=== PATIENT | male | born 1980 | race Hispanic/Latino ===

== ENCOUNTER 2019-05-29 11:14 | Emergency (ER) | payer OTHER, SELFPAY ==
--- NOTE | 2019-05-29 12:26 | EDPHYS ---
Physician Documentation [facility] Name: Dedrick Ray Jr Age: 38 yrs Sex: Male : 1980 Arrival Date: 05/29/2019 Time: 11:23 Bed 5 Private MD: None, None ED Physician Chano Ramirez HPI: 05/28 15:23 This 38 yrs old Male presents to ER via Ambulatory with complaints of Flu kb Symptoms. 15:23 The patient or guardian reports cough, that is intermittent, described as moderate, kb with no sputum, flu symptoms, low-grade fever. Onset: The symptoms/episode began/occurred last night. Severity of symptoms: At their worst the symptoms were moderate, in the emergency department the symptoms are unchanged. Modifying factors: The symptoms are alleviated by nothing, the symptoms are aggravated by nothing. Associated signs and symptoms: Pertinent positives: fever, sore throat, Pertinent negatives: chest pain, diarrhea, ear ache, nausea, rhinorrhea, vomiting. The patient has not experienced similar symptoms in the past. The patient has not recently seen a physician. Pt reports subjective fever, sore throat and cough that started last night. Historical: - Allergies: 11:33 No Known Allergies; sv - Home Meds: 11:33 None [Active]; sv - PMHx: 11:33 None; sv - PSHx: 11:33 None; sv - Immunization history:: Adult Immunizations up to date, Flu vaccine is not up to date. - Social history:: Smoking status: Patient denies any tobacco usage or history of. ROS: 15:21 Neck: Negative for injury, pain, and swelling, Cardiovascular: Negative for chest pain, kb palpitations, and edema, Abdomen/GI: Negative for abdominal pain, nausea, vomiting, diarrhea, and constipation, Back: Negative for injury and pain, MS/Extremity: Negative for injury and deformity, Skin: Negative for injury, rash, and discoloration, Neuro: Negative for headache, weakness, numbness, tingling, and seizure. 15:21 Constitutional: Positive for fever. 15:21 ENT: Positive for sore throat. 15:21 Respiratory: Positive for cough. Exam: 15:21 Constitutional: This is a well developed, well nourished patient who is awake, alert, kb and in no acute distress. Head/Face: Normocephalic, atraumatic. ENT: Nares patent. No nasal discharge, no septal abnormalities noted. Tympanic membranes are normal and external auditory canals are clear. Oropharynx with no redness, swelling, or masses, exudates, or evidence of obstruction, uvula midline. Mucous membranes moist. Neck: Trachea midline, no thyromegaly or masses palpated, and no cervical lymphadenopathy. Supple, full range of motion without nuchal rigidity, or vertebral point tenderness. No Meningismus. Chest/axilla: Normal chest wall appearance and motion. Nontender with no deformity. No lesions are appreciated. Cardiovascular: Regular rate and rhythm with a normal S1 and S2. No gallops, murmurs, or rubs. Normal PMI, no JVD. No pulse deficits. Respiratory: Lungs have equal breath sounds bilaterally, clear to auscultation and percussion. No rales, rhonchi or wheezes noted. No increased work of breathing, no retractions or nasal flaring. Abdomen/GI: Soft, non-tender, with normal bowel sounds. No distension or tympany. No guarding or rebound. No evidence of tenderness throughout. Skin: Warm, dry with normal turgor. Normal color with no rashes, no lesions, and no evidence of cellulitis. MS/ Extremity: Pulses equal, no cyanosis. Neurovascular intact. Full, normal range of motion. Neuro: Awake and alert, GCS 15, oriented to person, place, time, and situation. Cranial nerves II-XII grossly intact. Motor strength 5/5 in all extremities. Sensory grossly intact. Cerebellar exam normal. Normal gait. Vital Signs: 11:31 BP 141 / 97; Pulse 63; Resp 18; Temp 98.8(O); Pulse Ox 96% ; Weight 117.93 kg; Height 5 sv ft. 6 in. (167.64 cm); Pain 6/10; 11:31 Body Mass Index 41.96 (117.93 kg, 167.64 cm) sv MDM: 11:29 Patient medically screened. kb 15:22 Data reviewed: vital signs, nurses notes. Data interpreted: Pulse oximetry: on room air kb is 96 %. Interpretation: normal. Counseling: I had a detailed discussion with the patient and/or guardian regarding: the historical points, exam findings, and any diagnostic results supporting the discharge/admit diagnosis, lab results, the need for outpatient follow up, a family practitioner, to return to the emergency department if symptoms worsen or persist or if there are any questions or concerns that arise at home. 05/28 11:32 Order name: Flu; Complete Time: 12:13 kb 05/28 11:32 Order name: Strep; Complete Time: 12:04 kb 05/28 12:05 Order name: Throat Culture EDMS Administered Medications: No medications were administered Disposition: 16:25 Co-signature as Attending Physician, Chano Ramirez MD I agree with the assessment and kdr plan of care. Disposition: 05/29/19 12:24 Discharged to Home. Impression: Acute upper respiratory infection, unspecified. - Condition is Stable. - Discharge Instructions: Upper Respiratory Infection, Adult, [id number], Viral Respiratory Infection, [id number]. - Medication Reconciliation Form, Thank You Letter, Antibiotic Education, Prescription Opioid Use, Work release form form. - Follow up: Emergency Department; When: As needed; Reason: Worsening of condition. Follow up: Private Physician; When: 2 - 3 days; Reason: Recheck today's complaints, Continuance of care, Re-evaluation by your physician. Signatures: Dispatcher [employer] EDAK Bethany King, DEVELOPMENT TECHNICIAN-C DEVELOPMENT TECHNICIAN-Alla Costello, RN Chano Mckeon MD MD kdr Cliff Cooper RN RN jl7 Corrections: (The following items were deleted from the chart) 12:47 12:24 05/29/2019 12:24 Discharged to Home. Impression: Acute upper respiratory jl7 infection, unspecified. Condition is Stable. Forms are Medication Reconciliation Form, Thank You Letter, Antibiotic Education, Prescription Opioid Use. Follow up: Emergency Department; When: As needed; Reason: Worsening of condition. Follow up: Private Physician; When: 2 - 3 days; Reason: Recheck today's complaints, Continuance of care, Re-evaluation by your physician. kb
--- NOTE | 2019-05-29 12:26 | ER ---
Nurse's Notes [facility] Name: Dedrick Ray Jr Age: 38 yrs Sex: Male : 1980 Arrival Date: 05/29/2019 Time: 11:23 Bed 5 Private MD: None, None Diagnosis: Acute upper respiratory infection, unspecified Presentation: 05/28 11:31 Chief complaint: Patient states: sore throat, subjective fever, productive cough with sv bloody sputum started last night. Coronavirus screen: The patient has NOT traveled to a country currently being monitored by the [facility] within the last 14 days. Proceed with normal triage procedures. The patient has NOT had contact with any known and/or suspected case of coronavirus. Proceed with normal triage procedures. Ebola Screen: Patient negative for fever greater than or equal to 101.5 degrees Fahrenheit, and additional compatible Ebola Virus Disease symptoms Patient denies exposure to infectious person. Patient denies travel to an Ebola-affected area in the 21 days before illness onset. No symptoms or risks identified at this time. Initial Sepsis Screen: Does the patient meet any 2 criteria? No. Patient's initial sepsis screen is negative. Does the patient have a suspected source of infection? No. Patient's initial sepsis screen is negative. Risk Assessment: Do you want to hurt yourself or someone else? Patient reports no desire to harm self or others. 11:31 Method Of Arrival: Ambulatory 11:31 Acuity: LONNIE 3 11:32 Onset of symptoms was May 28, 2019. sv Triage Assessment: 11:31 General: Appears in no apparent distress. uncomfortable, well groomed, well developed, sv Behavior is calm, cooperative, appropriate for age. General: Reports subjective fever. Pain: Complains of pain in left aspect of posterior pharynx and right aspect of posterior pharynx Pain currently is 6 out of 10 on a pain scale. Quality of pain is described as burning, Pain began 1 day ago. Is intermittent. EENT: Oral mucosa is moist. Reports pain in left aspect of posterior pharynx and right aspect of posterior pharynx. Neuro: Level of Consciousness is awake, alert, obeys commands, Oriented to person, place, time, situation, Moves all extremities. Full function Gait is steady. Respiratory: Airway is patent Respiratory effort is even, unlabored, Respiratory pattern is regular, symmetrical. Derm: Skin is intact, Skin is pink, warm \T\ dry. Historical: - Allergies: 11:33 No Known Allergies; sv - Home Meds: 11:33 None [Active]; sv - PMHx: 11:33 None; sv - PSHx: 11:33 None; sv - Immunization history:: Adult Immunizations up to date, Flu vaccine is not up to date. - Social history:: Smoking status: Patient denies any tobacco usage or history of. Screenin:31 Abuse screen: Denies threats or abuse. Denies injuries from another. Nutritional sv screening: No deficits noted. Tuberculosis screening: No symptoms or risk factors identified. Fall Risk None identified. Assessment: 12:40 Reassessment: Patient appears in no apparent distress at this time. No changes from previously documented assessment. Patient and/or family updated on plan of care and expected duration. Pain level reassessed. Patient is alert, oriented x 3, equal unlabored respirations, skin warm/dry/pink. Vital Signs: 11:31 BP 141 / 97; Pulse 63; Resp 18; Temp 98.8(O); Pulse Ox 96% ; Weight 117.93 kg; Height 5 sv ft. 6 in. (167.64 cm); Pain 6/10; 11:31 Body Mass Index 41.96 (117.93 kg, 167.64 cm) sv ED Course: 11:23 Patient arrived in ED. mr 11:24 None, None is Private Physician. mr 11:26 Alla Dang, RN is Primary Nurse. sv 11:27 Arm band placed on Patient placed in an exam room, on a stretcher. sv 11:28 Bethany King FNP-C is PHCP. kb 11:28 Chano Ramirez MD is Attending Physician. kb 11:30 Flu and/or RSV swab sent to lab. Strep swab sent to lab. sv 11:31 Patient has correct armband on for positive identification. Bed in low position. Call sv light in reach. Adult w/ patient. Pulse ox on. NIBP on. Door closed. Head of bed elevated. 11:32 Triage completed. sv 11:43 Awaiting lab results. sv 12:05 Throat Culture Sent. sv 12:46 No provider procedures requiring assistance completed. Patient did not have IV access jl7 during this emergency room visit. Administered Medications: No medications were administered Outcome: 12:24 Discharge ordered by . jewels 12:46 Discharged to home ambulatory. jl7 12:46 Condition: stable 12:46 Discharge instructions given to patient, Instructed on discharge instructions, follow up and referral plans. Demonstrated understanding of instructions, follow-up care. 12:47 Patient left the ED. jl7 Signatures: Bethany King, UBALDO-Coreen CONNER-Alla Costello RN RN sv Rivera, Mary mr Leal, Jahala, RN RN jl7 Corrections: (The following items were deleted from the chart) 11:33 11:31 Pulse 63bpm; Resp 18bpm; Pulse Ox 96%; Temp 98.8F Oral; 117.93 kg; Height 5 ft. 6 sv in.; BMI: 41.9; Pain 6/10; sv
[2019-05-29 12:51] VITALS: BP 141/97; TEMP 98.8; O2SAT 96
== END 2019-05-29 12:47 | disposition home or self-care (01) ==
LOC: ER 11:14
DX: J06.9 Acute upper respiratory infection, unspecified (principal)
CPT/HCPCS: 87070; 87081; 87804; 99283

== ENCOUNTER 2019-12-03 06:57 | Emergency (ER) | payer SELFPAY ==
[2019-12-03] MEDS ORDERED: LIDOCAINE VISCOUS 2% SOLN 15 ML UDC ONE (08:07)
[2019-12-03] MEDS ORDERED: dexAMETHasone 10 MG/ML VIAL ONE (08:07)
[2019-12-03] MEDS ORDERED: MAGNE/ALUM HYDROXD 30 ML UCUP ONE (08:07)
--- NOTE | 2019-12-03 08:07 | EDPHYS ---
Physician Documentation [facility] Name: Dedrick Ray Jr Age: 39 yrs Sex: Male : 1980 Arrival Date: 12/03/2019 Time: 06:59 Bed 14 Private MD: ED Physician Ariel Shelley HPI: 12/02 08:04 This 39 yrs old Male presents to ER via Ambulatory with complaints of Sore kb Throat. 08:04 The patient presents with sore throat. The patient describes throat pain as constant. kb Onset: The symptoms/episode began/occurred 4 day(s) ago. Severity of symptoms: At their worst the symptoms were moderate, in the emergency department the symptoms are unchanged. Modifying factors: The symptoms are alleviated by nothing, the symptoms are aggravated by swallowing, Patient's oral intake status: limited fluid intake, limited food intake, Denies contact with similarly ill indivduals. Associated signs and symptoms: Pertinent positives: earache, Sore throat Pertinent negatives chest pain, chills, cough, diarrhea, dysphagia, fever, flu-like symptoms, headache, nausea, rhinorrhea, shortness of breath, vomiting. The patient has not experienced similar symptoms in the past. The patient has not recently seen a physician. Historical: - Allergies: 12:48 No Known Allergies; hb - Home Meds: 12:48 None [Active]; hb - PMHx: 12:48 None; hb - PSHx: 12:48 None; hb - Immunization history:: Adult Immunizations up to date. - Social history:: Smoking status: Patient denies any tobacco usage or history of. ROS: 08:04 Constitutional: Negative for fever, chills, and weight loss, Cardiovascular: Negative kb for chest pain, palpitations, and edema, Respiratory: Negative for shortness of breath, cough, wheezing, and pleuritic chest pain, Abdomen/GI: Negative for abdominal pain, nausea, vomiting, diarrhea, and constipation, Back: Negative for injury and pain, MS/Extremity: Negative for injury and deformity, Skin: Negative for injury, rash, and discoloration, Neuro: Negative for headache, weakness, numbness, tingling, and seizure. 08:04 ENT: Positive for ear pain, sore throat. Exam: 08:04 Constitutional: This is a well developed, well nourished patient who is awake, alert, kb and in no acute distress. Head/Face: Normocephalic, atraumatic. Chest/axilla: Normal chest wall appearance and motion. Nontender with no deformity. No lesions are appreciated. Cardiovascular: Regular rate and rhythm with a normal S1 and S2. No gallops, murmurs, or rubs. Normal PMI, no JVD. No pulse deficits. Respiratory: Lungs have equal breath sounds bilaterally, clear to auscultation and percussion. No rales, rhonchi or wheezes noted. No increased work of breathing, no retractions or nasal flaring. Abdomen/GI: Soft, non-tender, with normal bowel sounds. No distension or tympany. No guarding or rebound. No evidence of tenderness throughout. Skin: Warm, dry with normal turgor. Normal color with no rashes, no lesions, and no evidence of cellulitis. MS/ Extremity: Pulses equal, no cyanosis. Neurovascular intact. Full, normal range of motion. Neuro: Awake and alert, GCS 15, oriented to person, place, time, and situation. Cranial nerves II-XII grossly intact. Motor strength 5/5 in all extremities. Sensory grossly intact. Cerebellar exam normal. Normal gait. 08:04 ENT: External ear(s): are unremarkable, Ear canal(s): are normal, TM's: are normal, Posterior pharynx: Airway: normal, no evidence of obstruction, Tonsils: bilaterally enlarged, with erythema, Uvula: normal, midline, swelling, that is moderate, erythema, that is moderate, exudate, is not appreciated. Vital Signs: 07:08 BP 179 / 92; Pulse 79; Resp 16; Temp 97.2(TE); Pulse Ox 100% on R/A; Weight 113.4 kg; hb Height 5 ft. 6 in. (167.64 cm); Pain 10/10; 07:08 Body Mass Index 40.35 (113.40 kg, 167.64 cm) hb MDM: 07:36 Patient medically screened. kb 08:04 Data reviewed: vital signs, nurses notes. Data interpreted: Pulse oximetry: on room air kb is 100 %. Interpretation: normal. Counseling: I had a detailed discussion with the patient and/or guardian regarding: the historical points, exam findings, and any diagnostic results supporting the discharge/admit diagnosis, lab results, the need for outpatient follow up, a family practitioner, to return to the emergency department if symptoms worsen or persist or if there are any questions or concerns that arise at home. 12/02 07:39 Order name: Strep; Complete Time: 08:04 kb 12/02 08:06 Order name: Throat Culture EDMS Administered Medications: 07:52 Drug: GI Cocktail without - (Maalox Suspension 30 ml, Lidocaine Liquid 2 % 15 hb ml) Route: PO; 08:23 Follow up: Response: No adverse reaction hb 07:52 Drug: Decadron - Dexamethasone 10 mg Route: IVP; Site: Other; hb 08:23 Follow up: Response: No adverse reaction hb Disposition: 08:47 Co-signature as Attending Physician, Ariel Shelley MD. rn Disposition: 12/03/19 08:06 Discharged to Home. Impression: Acute tonsillitis. - Condition is Stable. - Discharge Instructions: Tonsillitis, [id number]. - Prescriptions for Augmentin 875- 125 mg Oral Tablet - take 1 tablet by ORAL route every 12 hours for 10 days; 20 tablet. - Medication Reconciliation Form, Thank You Letter, Antibiotic Education, Prescription Opioid Use, Work release form, Family Work Release form. - Follow up: Emergency Department; When: As needed; Reason: Worsening of condition. Follow up: Private Physician; When: 2 - 3 days; Reason: Recheck today's complaints, Continuance of care, Re-evaluation by your physician. Signatures: Dispatcher [employer] EDCT Bethany King, MANAGER PHOTO-C MANAGER PHOTO-Ckb Ariel Shelley MD MD rn Baxter, Heather, RN RN Corrections: (The following items were deleted from the chart) 08:24 08:06 12/03/2019 08:06 Discharged to Home. Impression: Acute tonsillitis. Condition is hb Stable. Forms are Medication Reconciliation Form, Thank You Letter, Antibiotic Education, Prescription Opioid Use. Follow up: Emergency Department; When: As needed; Reason: Worsening of condition. Follow up: Private Physician; When: 2 - 3 days; Reason: Recheck today's complaints, Continuance of care, Re-evaluation by your physician. kb
--- NOTE | 2019-12-03 08:07 | ER ---
Nurse's Notes [facility] Name: Dedrick Ray Jr Age: 39 yrs Sex: Male : 1980 Arrival Date: 12/03/2019 Time: 06:59 Bed 14 Private MD: Diagnosis: Acute tonsillitis Presentation: 12/02 07:08 Chief complaint: Sore throat, intermittent headache, and bilateral ear pain x 4 days. hb Coronavirus screen: headache, sore throat, Client presents with at least one sign or symptom that may indicate coronavirus-19. Standard/surgical mask placed on the client. Provider contacted for isolation considerations. Ebola Screen: No symptoms or risks identified at this time. Initial Sepsis Screen: Does the patient meet any 2 criteria? No. Patient's initial sepsis screen is negative. Does the patient have a suspected source of infection? No. Patient's initial sepsis screen is negative. Risk Assessment: Do you want to hurt yourself or someone else? Patient reports no desire to harm self or others. Onset of symptoms was November 30, 2019. 07:08 Method Of Arrival: Ambulatory hb 07:08 Acuity: LONNIE 4 hb Triage Assessment: 07:11 General: Appears in no apparent distress. Behavior is calm, cooperative. hb 07:11 Pain: Pain currently is 10 out of 10 on a pain scale. EENT: Reports sore thoat. Neuro: hb Level of Consciousness is awake, alert, obeys commands, Oriented to person, place, time, situation, Reports headache. Cardiovascular: Patient's skin is warm and dry. Respiratory: Respiratory effort is even, unlabored, Respiratory pattern is regular, symmetrical. GI: No signs and/or symptoms were reported involving the gastrointestinal system. : No signs and/or symptoms were reported regarding the genitourinary system. Derm: No signs and/or symptoms reported regarding the dermatologic system. Derm: Skin is pink, warm \T\ dry. Musculoskeletal: No signs and/or symptoms reported regarding the musculoskeletal system. Historical: - Allergies: 12:48 No Known Allergies; hb - Home Meds: 12:48 None [Active]; hb - PMHx: 12:48 None; hb - PSHx: 12:48 None; hb - Immunization history:: Adult Immunizations up to date. - Social history:: Smoking status: Patient denies any tobacco usage or history of. Screenin:23 Abuse screen: Denies threats or abuse. Denies injuries from another. Nutritional hb screening: No deficits noted. Tuberculosis screening: No symptoms or risk factors identified. Fall Risk None identified. Assessment: 07:12 General: see triage assessmrnt. hb 08:00 Reassessment: Patient appears in no apparent distress at this time. Patient and/or hb family updated on plan of care and expected duration. Pain level reassessed. Patient is alert, oriented x 3, equal unlabored respirations, skin warm/dry/pink. Vital Signs: 07:08 BP 179 / 92; Pulse 79; Resp 16; Temp 97.2(TE); Pulse Ox 100% on R/A; Weight 113.4 kg; hb Height 5 ft. 6 in. (167.64 cm); Pain 10/10; 07:08 Body Mass Index 40.35 (113.40 kg, 167.64 cm) hb ED Course: 06:59 Patient arrived in ED. as 07:09 Triage completed. hb 07:11 Arm band placed on. hb 07:36 Bethany King FNP-C is PHCP. kb 07:36 Ariel Shelley MD is Attending Physician. kb 07:47 Strep swab sent to lab. em 07:54 Marianne Narvaez, RN is Primary Nurse. hb 08:02 Patient has correct armband on for positive identification. Bed in low position. Call hb light in reach. 08:23 No provider procedures requiring assistance completed. Patient did not have IV access hb during this emergency room visit. Administered Medications: 07:52 Drug: GI Cocktail without - (Maalox Suspension 30 ml, Lidocaine Liquid 2 % 15 hb ml) Route: PO; 08:23 Follow up: Response: No adverse reaction hb 07:52 Drug: Decadron - Dexamethasone 10 mg Route: IVP; Site: Other; hb 08:23 Follow up: Response: No adverse reaction hb Outcome: 08:06 Discharge ordered by . kb 08:23 Discharged to home ambulatory, with significant other. hb 08:23 Condition: stable 08:23 Discharge instructions given to patient, Instructed on discharge instructions, follow up and referral plans. medication usage, Demonstrated understanding of instructions, follow-up care, medications, Prescriptions given X 1. 08:24 Patient left the ED. hb Signatures: Bethany King FNP-C PROGRAM DEVELOPMENT MANAGER-Ckb Luca Mosley, RN RN Radha Alexander Heather, RN RN hb
[2019-12-03 08:34] VITALS: BP 179/92; TEMP 97.2; O2SAT 100
== END 2019-12-03 08:24 | disposition home or self-care (01) ==
LOC: ER 06:57
DX: J03.90 Acute tonsillitis, unspecified (principal)
CPT/HCPCS: 87070; 87081; 96374; 99283; J1100